=== PATIENT | male | born 1965 | race Caucasian/White ===

== ENCOUNTER 2017-07-11 10:30 | Outpatient (CLI) | payer MEDICARE ==
[~2017-07-11] VITALS: Ht 177.8 cm; Wt 113.6 kg
--- NOTE | ~2017-07-11 | HEMODYNAMI ---
PATIENT:RAGHAV LAMA MEDICAL RECORD: [id number] : 65 LOCATION:[facility] ADMISSION DATE: 07/11/17 Generatedon:07/11/201713:35 Patient name: RAGHAV LAMA Patient #: [id number] SSN: D OB: 1965 Date of study: 07/11/2017 Page: Of Hemodynamic Procedure Report Patient Data Patient Demographics Procedure consent was obtained First Name: RAGHAV Gender: Male Last Name: DAINA : 1965 Middle Initial: S Age: 52 year(s) Patient #: [id number] Race: Unknown Additional ID: [id number] Contact details [address]: [address] [place] [address] State: [place] City: [place] Zip code: [address] Past Medical History Allergies Allergen Reaction Date Comments Reported Other allergy 07/11/2017 Tetracyclines, Erythromycine Admission Admission Data Admission Date: 07/11/2017 Admission Time: 10:30 Procedure Procedure Types Cath Procedure Diagnostic Procedure LHC LH w/Coronaries Sedation Charges Moderate Sedation up to 15 minutes Procedure Description Procedure Date Procedure Date: 07/11/2017 Procedure Start Time: 13:15 Procedure End Time: 13:32 Procedure Staff Name Function Rudolph Ni MD Performing Physician Lilly Aiken RT Monitor Abiodun Rosen RN Nurse Ava Manuel RT Scrub Procedure Data Cath Procedure Fluoroscopy Diagnostic fluoroscopy Total fluoroscopy Time: 8.7 time: 8.7 min min Diagnostic fluoroscopy Total fluoroscopy dose: dose: 1526 mGy 1526 mGy Contrast Material Contrast Material Type Amount (ml) Isovue 300 125 Entry Location Entry Primary Successful Side Size Upsize Upsize Entry Closure [place]win ccessful Closure Location (Fr) 1 (Fr) 2 (Fr) Remarks Device Remarks Radial Right 6 Fr Mechanical artery Short Compression Estimated blood loss: 5 ml Diagnostic catheters Device Type Used For End Catheter Placement DIAGNOSTIC [place] 110cm 5 Multi-vessel Fr catheter ([id number]) Angiography DIAGNOSTIC AR 1 MOD 5Fr Right Coronary catheter ([id number]) Angiography DIAGNOSTIC JR 4 5Fr Right Coronary catheter ([id number]) Angiography DIAGNOSTIC Pigtail 5Fr Multi-vessel catheter ([id number]) Angiography Procedure Complications No complications Procedure Medications Medication Administration Route Dosage 0.9% NaCl I.V. 100 ml/hr Oxygen etCO2 Nasal cannula 2 l/min Heparin Flush Bag added to field 2 bags (1000units/500ml NS) Lidocaine 2% added to field 20 Benadryl I.V. 50 mg Versed I.V. 2 mg Fentanyl I.V. 100 mcg Radial Cocktail I.A. (Verapomil 2mg/Nitro 400mcg/Heparin 1500units) Radial Cocktail added to field 1 syringe (Verapomil 2mg/Nitro 400mcg/Heparin 1500units) Hemodynamics Rest Heart Rate: 74 (bpm) Pressure Samples Time Site Value (mmHg) Purpose Heart Use Rate(bpm) 13:30 LV 99/11,27 Snapshot 73 13:30 AO 112/40(72) Pullback 73 13:30 LV 102/16,42 Pullback 73 Gradients Valve Time Site 1 Site 2 Mean SEP/DFP Peak To Heart Use (mmHg) (sec/min) Peak Rate (mmHg) (bpm) Aortic 13:30 LV AO 0 21 0 73 102/16,42 112/40(72) Calculations Valve P-P Mean Valve Index Valve Source Name Gradient Area Flow (cm2) Aortic 0 0 0 0 Snapshots Pre Cath Intra NCS Post Cath Vital Signs Time Heart Resp SPO2 etCO2 NIBP (mmHg) Rhythm Pain Sedation Rate (ipm) (%) (mmHg) Status Level (bpm) 12:59:08 75 10 97 0 148/85(95) NSR 0 (11) 10(A) , No pain 13:03:18 66 18 94 0 127/87(100) NSR 0 (11) 10(A) , No pain 13:07:24 62 16 94 33.6 126/81(93) NSR 0 (11) 10(A) , No pain 13:11:28 65 16 94 34.3 132/89(103) NSR 0 (11) 10(A) , No pain 13:15:38 67 18 96 37.2 138/79(89) NSR 0 (11) 10(A) , No pain 13:19:52 74 20 92 29 117/71(94) NSR 0 (11) 10(A) , No pain 13:23:55 70 14 93 38 127/78(95) NSR 0 (11) 10(A) , No pain 13:28:03 75 15 93 37.2 122/73(91) NSR 0 (11) 10(A) , No pain 13:32:13 73 23 93 35 119/69(83) NSR 0 (11) 10(A) , No pain Medications Time Medication Route Dose Verified Delivered Reason Notes Effectiveness by by 13:02:11 0.9% NaCl I.V. 100 Abiodun Abiodun Per ml/hr Jessika Rosen physician RN RN 13:02:22 Oxygen etCO2 2 l/min Abiodun Abiodun Per Nasal Jessika Rosen physician cannula RN RN 13:02:33 Heparin Flush added 2 bags Abiodun Abiodun used for Bag to Jessika Rosen procedure (1000units/500ml field RN ABIGAIL NS) 13:02:45 Lidocaine 2% added 20ml Abiodun Abiodun for local to vial Moniqueigan Jessika anesthetic RN RN 13:03:23 Radial Cocktail added 1 Abiodun Rudolph used for (Verapomil to syringe Lorigan Raine procedure 2mg/Nitro field ABIGAIL BRAGG 400mcg/Heparin 1500units) 13:07:12 Benadryl I.V. 50 mg Abiodun Abiodun Per Jessika Rosen physician RN RN 13:07:23 Versed I.V. 2 mg Abiodun Abiodun for sedation Jessika Rosen RN RN 13:07:33 Fentanyl I.V. 100 mcg Abiodun Abiodun for sedation Jessika Rosen RN RN 13:17:18 Radial Cocktail I.A. Abiodun Rudolph for (Verapomil Lorigan Raine vasodilation 2mg/Nitro ABIGAIL BRAGG 400mcg/Heparin 1500units) Procedure Log Time Note 12:35:48 Daniella Rubin RT(R) sent for patient. Start room use. 12:49:33 Diagnostic Cath Status : Elective 12:49:54 Time tracking: Regular hours (M-F 7:00 - 5:00) 12:49:57 Plan of Care:Hemodynamics will remain stable., Cardiac rhythm will remain stable., Comfort level will be maintained., Respiratory function will remain adequate., Patient/ family verbilizes understanding of procedure., Procedure tolerated without complication., Recovers from procedure without complications.. 12:50:02 Patient received from Pre/Post Procedure Room to CCL 2 Alert and oriented. Tansferred to table in Supine position. 12:50:04 Warm blankets applied, and oumar hugger turned on for patient comfort. 12:50:04 Correct patient and procedure confirmed by team. 12:50:06 Signed procedure consent form obtained from patient. 12:50:07 ECG and BP/O2 sat monitors applied to patient. 12:58:05 Vital chart was started 12:58:07 Baseline sample Acquired. 12:58:10 Rhythm: sinus rhythm 12:58:11 Full Disclosure recording started 12:58:24 H&P Date Dictated: 06/30/2017 Within 30 days and on chart., H&P Addendum completed by physician on day of procedure. (MUST COMPLETE FOR ALL OUTPATIENTS). 12:58:37 Pre-procedure instructions explained to patient. 12:58:40 Patient NPO since Midnight. 12:59:05 Patient allergic to Other allergyTetracyclines, Erythromycine 12:59:08 Is the patient allergic to Iodine/contrast media? No. 12:59:09 Was the patient premedicated? Yes 12:59:11 Is patient on blood thinner?No 12:59:13 Patient diabetic? Yes. 12:59:15 If diabetic: On Metformin? Yes 12:59:21 If on Metformin: Last Dose? 07/08/2017 12:59:25 Snore? Yes 12:59:26 Sleep apnea? No 12:59:33 Airway obstruction? Yes COPD 12:59:37 Patient pain scale 0/10 ?. 12:59:44 IV patent on arrival in left forearm with 0.9% NaCl at [facility]. 12:59:58 Right Radial & Right Groin area was prepped with chlora-prep and draped in sterile fashion 12:59:59 Alarms reviewed by R. N. 12:59:59 Sharps counted by scrub and verified by R.N. 13:00:00 Physician paged 13:02:11 0.9% NaCl 100 ml/hr I.V. was administered by Abiodun Rosen RN; Per physician; 13:02:22 Oxygen 2 l/min etCO2 Nasal cannula was administered by Abiodun Rosen RN; Per physician; 13:02:33 Heparin Flush Bag (1000units/500ml NS) 2 bags added to field was administered by Abiodun Rosen RN; used for procedure; 13:02:33 Use device set Radial Dx or PCI 13:02:34 ACIST Syringe (46024) opened to sterile field. 13:02:35 Medline Cath Pack ([id number]) opened to sterile field. 13:02:35 Bag Decanter (2002S) opened to sterile field. 13:02:36 DIAGNOSTIC WIRE .035 260cm J wire (338545) opened to sterile field. 13:02:37 ACIST Hand Control (77723) opened to sterile field. 13:02:37 ACIST Manifold (66224) opened to sterile field. 13:02:39 MBrace Wrist Support ([id number]) opened to sterile field. 13:02:45 Lidocaine 2% 20ml vial added to field was administered by Abiodun Rosen RN; for local anesthetic; 13:02:48 SHEATH 6Fr Prelude Radial ([id number]) opened to sterile field. 13:03:23 Radial Cocktail (Verapomil 2mg/Nitro 400mcg/Heparin 1500units) 1 syringe added to field was administered by Rudolph Ni MD; used for procedure; 13:05:11 Physician arrived 13:05:12 --------ALL STOP TIME OUT------ 13:05:12 Final Timeout: patient, procedure, and site verified with staff and physician. All members of the team are in agreement. 13:05:15 Right Radial & Right Groin site verified by team. 13:05:18 Physical assessment completed. ASA score P 2 - A patient with mild systemic disease as per Rudolph Ni MD. 13:05:21 Sedation plan: IV Moderate Sedation Medication:Versed, Fentanyl 13:07:12 Benadryl 50 mg I.V. was administered by Abiodun Rosen RN; Per physician; 13::23 Versed 2 mg I.V. was administered by Abiodun Rosen RN; for sedation; ::33 Fentanyl 100 mcg I.V. was administered by Abiodun Rosen RN; for sedation; 13:08:28 Zero performed for pressure channel P1 13:13:38 Procedure started. 13:15:17 Local anesthetic to right radial artery with Lidocaine 2% by Rudolph Ni MD.INITIAL ACCESS ONLY 13:15:51 A 6 Fr Short sheath was inserted into the Right Radial artery 13:16:32 A DIAGNOSTIC [place] 110cm 5 Fr catheter (596944) was advanced over the wire and used for Multi-vessel Angiography. 13:17:18 Radial Cocktail (Verapomil 2mg/Nitro 400mcg/Heparin 1500units) I.A. was administered by Rudolph Ni MD; for vasodilation; 13:20:33 LCA angiography performed. 13:20:36 Injector settings: Ml/sec: 3, Volume: 6, 13:21:30 Catheter removed. 13:22:09 A DIAGNOSTIC AR 1 MOD 5Fr catheter ([id number]) was advanced over the wire and used for Right Coronary Angiography. 13:28:24 Catheter removed. unable to cannulate vessel. 13:28:31 A DIAGNOSTIC JR 4 5Fr catheter ([id number]) was advanced over the wire and used for Right Coronary Angiography. 13:28:41 RCA angiography performed. 13:28:44 Injector settings: Ml/sec: 3, Volume: 6, 13:28:49 Catheter removed. 13:29:02 A DIAGNOSTIC Pigtail 5Fr catheter ([id number]) was advanced over the wire and used for Multi-vessel Angiography. 13:30:38 LV hemodynamics recorded. 13:30:39 LV gram done using DUONG 13:30:42 Injector settings: Ml/sec: 5, Volume: 15, 13:30:53 EF : 55 % 13:31:06 Catheter removed. 13:31:15 TR BAND Standard ([id number]) opened to sterile field. 13:31:26 Sheath removed intact; hemostasis achieved with Mechanical Compression to the Right Radial artery. 13:31:27 Procedure ended.(Physican Out) 13:31:45 Fluoroscopy time 08.70 minutes. 13:31:51 Fluoroscopy dose: 1526 mGy 13:31:51 Flurop Dose total: 1526 13:31:56 Contrast amount:Isovue 300 125ml. 13:31:58 Sharps counted by scrub and verified by R.N. 13:32:05 TR band inflated with 10cc of air. 13:32:06 Insertion/operative site no bleeding no hematoma. 13:32:10 Post right radial artery:stable 13:32:11 Post Procedure Pulses reassessed and unchanged 13:32:14 Post procedure rhythm: unchanged. 13:32:16 Estimated blood loss: 5 ml 13:32:18 Post procedure instruction explained to patient.Patient verbalizes understanding. 13:32:18 Patient needs reinforcement of post procedure teaching. 13:32:38 Procedure type changed to Cath procedure, Diagnostic procedure, LHC, LHC w/Coronaries, Sedation Charges, Moderate Sedation up to 15 minutes 13:32:39 Procedure and supply charges have been captured, reviewed, submitted and are correct. 13:32:43 Procedure Complication : No complications 13:32:45 Vital chart was stopped 13:32:45 See physician's report for complete and final results. 13:32:48 Report given to Pre/Post Procedure Room. 13:32:51 Patient transfered to Pre/Post Procedure Room with Stretcher. 13:32:52 Procedure ended. 13:32:52 Full Disclosure recording stopped 13:32:56 End room use (Document Last) Device Usage Item Name Manufacture Quantity Catalog Number Hospital Part Current M inimal Lot# / Charge Number Stock Stock Serial# Code ACIST Syringe Acist 1 16350 149839 139786 574532 2 0 (21591) [employer] Medline Cath Cardinal 1 [id number] 795502 24183 145207 5 Pack Health ([id number]) Bag Decanter Microtek 1 2001S 729103 43294 202615 5 (2001S) Medical Inc. DIAGNOSTIC WIRE [place] 1 149142 141227 359921 409112 3 0 .035 260cm J wire (567714) ACIST Hand Acist 1 72352 464373 907561 706382 5 Control (71546) [employer] Inc ACIST Manifold Acist 1 43028 148239 009522 875005 5 (60741) [employer] Inc MBrace Wrist Advanced 1 140-0250-00 439355 92986 417048 5 Support Vascular ([id number]) Dynamics SHEATH 6Fr Merit 1 [id number] 874441 259708 055424 5 Prelude Radial Medical ([id number]) DIAGNOSTIC Terumo 1 73-9142 629257 114495 362455 5 [place] 110cm 5 Fr catheter (146882) DIAGNOSTIC AR 1 Cardinal 1 [id number] 180558 570868 536554 1 5 MOD 5Fr Health catheter (093806Y) DIAGNOSTIC JR 4 Cardinal 1 [id number] 704839 155364 040095 5 5Fr catheter Health ([id number]) DIAGNOSTIC Cardinal 1 [id number] 547014 362367 411817 5 Pigtail 5Fr Health catheter ([id number]) TR BAND Terumo 1 [id number] 697334 521428 447801 4 0 Standard ([id number]) Signature Audit Tucker Stage Time Signature Unsigned Intra-Procedure 07/11/2017 Lilly Aiken 1:35:29 PM RT(R) Signatures Monitor : Lilly Aiken RT Signature : Date : Time : [place] [id number] [facility] [place] [address]
--- NOTE | ~2017-07-11 | OP ---
PATIENT NAME: RAGHAV LAMA MEDICAL RECORD: [id number] :65 LOCATION:[facility] ADMISSION DATE: SURGEON: JOSE MIGUEL GUPTA MD DATE OF OPERATION: 07/11/2017 PROCEDURE: Left heart catheterization, selective coronary angiography, right radial approach. CATHETERS: Crosby catheter and AR1 catheter. The procedure was well tolerated. The patient returned to martin, sheath removed and TR band was placed. FINDINGS: Left ventriculography in 30-degree DUONG view: Normal wall motion, normal systolic function. CORONARY ANATOMY. Left main: Left main is free of disease. LAD: Free of disease in diagonal system. Circumflex: Free of disease in the marginal system. Right coronary artery: Free of disease. IMPRESSION: Normal systolic function, normal coronary anatomy. TRANSINT:[id number] Voice Confirmation ID: [id number] DOCUMENT ID: [id number] JOSE MIGUEL GUPTA MD at 1325 CC: [id number] DICTATION DATE: 07/11/17 1336 AUTOMOBILE TESTER: 07/11/17 1506 DEP CLI 07/11/17 [place] [id number] [place] [address]
[2017-07-11] MEDS ORDERED: SINGULAIR10 MG PO (10:51)
[2017-07-11] MEDS ORDERED: BACLOFEN10 MG PO (10:51)
[2017-07-11] MEDS ORDERED: AMITRIPTYLINE H50 MG PO (10:52)
[2017-07-11] MEDS ORDERED: SYMBICORT 16010.2 GM INH (10:53)
[2017-07-11] MEDS ORDERED: COMBIVENT RESPIM4 GM INH (10:53)
[2017-07-11] MEDS ORDERED: DEXILANT60 MG PO (10:54)
[2017-07-11] MEDS ORDERED: FLUTICASONE PRO16 GM NASAL (10:55)
[2017-07-11] MEDS ORDERED: NEURONTIN 300300 MG PO (10:55)
[2017-07-11] MEDS ORDERED: DESVENLAFAX PO (10:55)
[2017-07-11] MEDS ORDERED: GLUCOPHAGE500 MG PO (10:56)
[2017-07-11] MEDS ORDERED: LEVOTHYROXINE50 MCG PO (10:56)
[2017-07-11] MEDS ORDERED: TOPROL XL50 MG PO (10:57)
[2017-07-11] MEDS ORDERED: SIMVASTATIN TAB 40M PO (10:57)
[2017-07-11] MEDS ORDERED: SUPER B COMPLE150 MG PO (10:58)
[2017-07-11] MEDS ORDERED: PRISTIQ100 MG PO (10:58)
[2017-07-11 11:13] VITALS: BP 117/70; Ht 177.8 cm; Wt 113.6 kg
[2017-07-11 11:33] LABS: BASOPHILS 0.2 % (0-2); EOSINOPHILS 3.5 % (0-7); HEMATOCRIT 44.5 % (42.0-54.0); HEMOGLOBIN 15.6 g/dL (13.5-17.5); IMMATURE GRANULOCYTES 0.5 % (0-5); MCH 33.1 pg (26.0-34.0); MCHC 35.1 g/dL (31.0-37.0); MCV 94.5 fL (80.0-100.0); MEAN PLATELET VOLUME 10.4 fL (7.4-10.4); MONOCYTES 9.2 % (2-11); NEUTROPHILS 56.6 % (40-80); PLATELET COUNT 239 10x3/uL (130-400); RBC 4.71 10x6/uL (4.20-6.10); RDW 12.4 % (11.5-14.5); WBC 5.8 10x3/uL (4.8-10.8)
[2017-07-11 12:22] LABS: ANION GAP 18.8 mmol/L (8-16); CALCIUM 9.1 mg/dL (8.5-10.1); CARBON DIOXIDE 21.6 mmol/L (21.0-32.0); CREATININE - SERUM 1.2 mg/dL (0.6-1.3); POTASSIUM - SERUM 4.4 mmol/L (3.5-5.1)
== END 2017-07-11 15:50 | disposition home or self-care (01) ==
LOC: D.CATH 10:30
PROVIDERS: Internal Medicine Interventional Cardiology
DX: I20.9 Angina pectoris, unspecified (principal); Z01.812 Encounter for preprocedural laboratory examination